=== PATIENT | female | born 1975 | race Caucasian/White ===

== ENCOUNTER 2019-09-17 17:31 | Observation (INO) ==
[2019-09-17] MEDS ORDERED: Naloxone 0.4 MG/ML INJ IVP PRN (21:16)
[2019-09-17] MEDS ORDERED: Ondansetron 4 MG/2 ML VIAL IVP PRN (21:16)
[2019-09-17] MEDS: Acetaminophen 325 MG TABLET PO PRN (21:56)
[2019-09-17] MEDS: 0.9 % Sodium Chloride 1,000 ML IVC SCH (21:57)
[2019-09-17] MEDS ORDERED: cefTRIAXone 1,000 MG in Water for inj. (sterile) 10 ML IVP SCH (22:00)
[2019-09-17] MEDS ORDERED: *HR* Promethazine 25 MG/ML VIAL IVP PRN (22:19)
[2019-09-18 03:32] LABS: Red Cell Distribution Width 12.9 % (11.5-14.5)
[2019-09-18 03:34] LABS: Hematocrit 31.1 % (35.3-44.9); Hemoglobin 9.9 g/dL (11.5-15.4); Mean Corpuscular HGB Conc 31.8 g/dL (31.6-35.5); Mean Corpuscular Hemoglobin 29.6 pg (28.0-33.3); Mean Corpuscular Volume 92.8 fL (83.0-100.0); Mean Platelet Volume 10.4 fL (9.4-12.4); Platelet Count 323 K/mcL (140-400); Red Blood Count 3.35 M/mcL (3.82-4.97)
[2019-09-18 03:43] LABS: White Blood Count 34.1 K/mcL (4.3-11.1)
[2019-09-18] MEDS: 0.9 % Sodium Chloride 1,000 ML IVC SCH ×3 (06:03→18:50)
[2019-09-18] MEDS: Acetaminophen 325 MG TABLET PO PRN (06:32)
[2019-09-18 10:24] LABS: Alanine Aminotransferase 13 Units/L (7-52); Albumin 2.7 g/dL (3.5-5.7); Albumin/Globulin Ratio 0.8 (1.1-2.2); Alkaline Phosphatase 174 Units/L (34-104); Aspartate Amino Transferase 9 Units/L (13-39); BUN/Creatinine Ratio 26 (6-26); Bilirubin,Total 0.6 mg/dL (0.3-1.0); Blood Urea Nitrogen 26 mg/dL (6-20); Calcium 8.6 mg/dL (8.6-10.3); Carbon Dioxide 23 mEq/L (23-29); Chloride 107 mEq/L (98-107); Globulin 3.2 g/dL (2.4-3.5); Glucose 109 mg/dL (70-105); Magnesium 1.5 mg/dL (1.6-2.6); Osmolality,Calculated 287 (280-300); Phosphorous 3.2 mg/dL (2.7-4.5); Potassium 3.9 mEq/L (3.5-5.1); Sodium 136 mEq/L (136-145); Total Protein 5.9 g/dL (6.4-8.9); eGFR For African Americans > 60 (> 60); eGFR For Non-African Americans > 60 (> 60)
[2019-09-18] MEDS ORDERED: 0.9 % Sodium Chloride 1,000 ML IVC SCH (10:30)
[2019-09-18] MEDS ORDERED: Magnesium Sulfate 1 GM/102 ML PIGGYBACK IVPB ONE (11:18)
[2019-09-18] MEDS: ARIPiprazole 10 MG TABLET PO SCH (13:12)
[2019-09-18] MEDS: (Buprenorphine Hcl/Naloxone Hcl [Suboxone 8 Mg-2 Mg S SL SCH ×2 (13:13→22:21)
[2019-09-18] MEDS: BuPROPion XL (24 HR) 150 MG TABLET PO SCH (13:13)
[2019-09-18] MEDS: Venlafaxine XR (24 HR) 75 MG CAP.ER.24H PO SCH (13:13)
[2019-09-18] MEDS: Piperacillin/Tazobactam 3.375 GM in 0.9 % Sodium Chloride Mini Bag 100 ML IVPB SCH (14:56)
[2019-09-18] MEDS: *HR* Heparin 5,000 UNIT/ML VIAL SQ SCH (18:01)
[2019-09-19] MEDS: Acetaminophen 325 MG TABLET PO PRN ×2 (00:16→23:33)
[2019-09-19] MEDS: Piperacillin/Tazobactam 3.375 GM in 0.9 % Sodium Chloride Mini Bag 100 ML IVPB SCH ×4 (00:16→23:33)
[2019-09-19 03:14] LABS: Basophils % 0.2 %; Eosinophils # 0.1 K/mcL (0.0-0.6); Eosinophils % 0.3 %; Hematocrit 23.8 % (35.3-44.9); Immature Granulocytes % 0.8 % (0-4); Lymphocytes # 1.9 K/mcL (0.6-4.6); Lymphocytes % 11.4 %; Mean Corpuscular HGB Conc 31.5 g/dL (31.6-35.5); Mean Corpuscular Hemoglobin 28.7 pg (28.0-33.3); Mean Corpuscular Volume 91.2 fL (83.0-100.0); Mean Platelet Volume 9.3 fL (9.4-12.4); Monocytes # 1.8 K/mcL (0.0-1.3); Monocytes % 10.7 %; Neutrophils # 12.9 K/mcL (1.6-8.9); Platelet Count 347 K/mcL (140-400); Red Blood Count 2.61 M/mcL (3.82-4.97); Red Cell Distribution Width 13.2 % (11.5-14.5); Segmented Neutrophils % 76.6 %
[2019-09-19 03:15] LABS: Hemoglobin 7.5 g/dL (11.5-15.4); White Blood Count 16.8 K/mcL (4.3-11.1)
[2019-09-19 03:18] LABS: INR 1.6; Prothrombin Time 17.9 Seconds (9.4-12.1)
[2019-09-19 03:32] LABS: BUN/Creatinine Ratio 29 (6-26); Blood Urea Nitrogen 21 mg/dL (6-20); Calcium 8.1 mg/dL (8.6-10.3); Carbon Dioxide 22 mEq/L (23-29); Chloride 107 mEq/L (98-107); Glucose 79 mg/dL (70-105); Magnesium 1.6 mg/dL (1.6-2.6); Osmolality,Calculated 286 (280-300); Phosphorous 3.2 mg/dL (2.7-4.5); Potassium 3.7 mEq/L (3.5-5.1); Sodium 137 mEq/L (136-145); eGFR For African Americans > 60 (> 60); eGFR For Non-African Americans > 60 (> 60)
[2019-09-19] MEDS: *HR* Heparin 5,000 UNIT/ML VIAL SQ SCH ×2 (05:35→18:15)
[2019-09-19] MEDS: BuPROPion XL (24 HR) 150 MG TABLET PO SCH (08:25)
[2019-09-19] MEDS: Venlafaxine XR (24 HR) 75 MG CAP.ER.24H PO SCH (08:25)
[2019-09-19] MEDS: ARIPiprazole 10 MG TABLET PO SCH (08:25)
[2019-09-19] MEDS: (Buprenorphine Hcl/Naloxone Hcl [Suboxone 8 Mg-2 Mg S SL SCH ×2 (08:26→22:37)
[2019-09-20 05:52] LABS: Basophils # 0.1 K/mcL (0.0-0.2); Basophils % 0.5 %; Eosinophils # 0.3 K/mcL (0.0-0.6); Eosinophils % 2.3 %; Hematocrit 27.1 % (35.3-44.9); Hemoglobin 8.4 g/dL (11.5-15.4); Immature Granulocytes % 0.6 % (0-4); Lymphocytes # 2.6 K/mcL (0.6-4.6); Lymphocytes % 23.5 %; Mean Corpuscular Hemoglobin 28.6 pg (28.0-33.3); Mean Corpuscular Volume 92.2 fL (83.0-100.0); Monocytes # 1.2 K/mcL (0.0-1.3); Neutrophils # 6.7 K/mcL (1.6-8.9); Platelet Count 408 K/mcL (140-400); Red Blood Count 2.94 M/mcL (3.82-4.97); Red Cell Distribution Width 13.3 % (11.5-14.5); Segmented Neutrophils % 62.1 %; White Blood Count 10.8 K/mcL (4.3-11.1)
[2019-09-20] MEDS: *HR* Heparin 5,000 UNIT/ML VIAL SQ SCH (05:59)
[2019-09-20 06:13] LABS: BUN/Creatinine Ratio 26 (6-26); Blood Urea Nitrogen 18 mg/dL (6-20); Carbon Dioxide 26 mEq/L (23-29); Chloride 104 mEq/L (98-107); Glucose 81 mg/dL (70-105); Magnesium 1.6 mg/dL (1.6-2.6); Osmolality,Calculated 287 (280-300); Phosphorous 3.7 mg/dL (2.7-4.5); Potassium 3.7 mEq/L (3.5-5.1); Sodium 138 mEq/L (136-145); eGFR For African Americans > 60 (> 60); eGFR For Non-African Americans > 60 (> 60)
[2019-09-20 06:31] LABS: Ferritin 469 ng/mL (10-120)
[2019-09-20] MEDS: BuPROPion XL (24 HR) 150 MG TABLET PO SCH (07:22)
[2019-09-20] MEDS: Piperacillin/Tazobactam 3.375 GM in 0.9 % Sodium Chloride Mini Bag 100 ML IVPB SCH (07:22)
[2019-09-20] MEDS: ARIPiprazole 10 MG TABLET PO SCH (07:22)
[2019-09-20] MEDS: Venlafaxine XR (24 HR) 75 MG CAP.ER.24H PO SCH (07:22)
[2019-09-20] MEDS: (Buprenorphine Hcl/Naloxone Hcl [Suboxone 8 Mg-2 Mg S SL SCH (07:23)
[2019-09-20 11:36] VITALS: BP 119/88
== END 2019-09-20 14:21 | disposition home or self-care (01) ==
LOC: 2NNU → SUATTDRO 19:48
PROVIDERS: ADMIT Internal Medicine; ATTEND Internal Medicine